=== PATIENT | male | born 1985 | race Caucasian/White ===

== ENCOUNTER 2019-09-30 17:14 | Emergency (ER) | payer OTHER ==
[~2019-09-30] VITALS: Ht 188 cm; Wt 90.7 kg
--- NOTE | 2019-09-30 17:43 | NUR ---
Dr. Avery at the bedside for MSE.
--- NOTE | 2019-09-30 18:00 | NUR ---
Patient discharged to home in stable condition. Written and verbal after care instructions given. Patient verbalizes understanding of instructions. Stressed follow up or return to ER for worsening s/s.
== END 2019-09-30 18:00 | disposition home or self-care (01) ==
LOC: ER 17:14
PROC: 0H95XZZ Drainage of Chest Skin, External Approach (ICD-10-PCS; principal; 2019-09-30)
DX: L02.213 Cutaneous abscess of chest wall (principal); J45.909 Unspecified asthma, uncomplicated
CPT/HCPCS: A4217; A4663